=== PATIENT | female | born 1995 | race Caucasian/White ===

== ENCOUNTER 2020-03-08 08:39 | Emergency (ER) | payer OTHER ==
[2020-03-08 09:27] VITALS: BP 132/73
--- NOTE | 2020-03-08 09:45 | UC ---
Bite Injury/Animal HPI - HPI Summary HPI Summary: 24-year-old female comes in with a chief complaint of tick bite to the right leg. She noticed 2 days ago. She used tweezers to pull it out. She thinks are still a piece of it left in her. No rash no fevers no chills feels well otherwise. She is not sure how long the tick was in her. - History of Current Complaint Chief Complaint: UCBiteInjury Stated Complaint: TICK ON RT LEG Time Seen by Provider: 03/08/20 09:43 Pain Intensity: 0 - Allergies/Home Medications Allergies/Adverse Reactions: Allergies Allergy/AdvReac Type Severity Reaction Status Date / Time No Known Allergies Allergy Verified 03/08/20 09:27 Home Medications: Home Medications DOXYcycline CAP(*) [DOXYcycline 100MG CAP(*)] 200 mg PO ONCE #2 cap 03/08/20 [Rx ] PMH/Surg Hx/FS Hx/Imm Hx Previously Healthy: Yes - Surgical History Surgical History: None - Family History Known Family History: Positive: Non-Contributory - Social History Alcohol Use: None Substance Use Type: None Smoking Status (MU): Never Smoked Tobacco Review of Systems All Other Systems Reviewed And Are Negative: Yes Constitutional: Positive: Negative Skin: Positive: Other - SEE HPI Eyes: Positive: Negative ENT: Positive: Negative Respiratory: Positive: Negative Cardiovascular: Positive: Negative Motor: Positive: Negative Neurovascular: Positive: Negative Musculoskeletal: Positive: Negative Neurological/Mental Status: Positive: Negative Psychological: Positive: Negative Is Patient Immunocompromised?: No Physical Exam Triage Information Reviewed: Yes Appearance: Well-Appearing, No Pain Distress, Well-Nourished Vital Signs: Initial Vital Signs Temp 99.7 F 03/08/20 09:23 Pulse 82 03/08/20 09:23 Resp 17 03/08/20 09:23 BP 132/73 03/08/20 09:23 Pulse Ox 98 03/08/20 09:23 Vital Signs Reviewed: Yes Eye Exam: Normal Eyes: Positive: Conjunctiva Clear Neck: Positive: Supple Respiratory: Positive: No respiratory distress Musculoskeletal: Positive: Strength Intact, ROM Intact Neurological: Positive: Alert Psychological: Positive: Age Appropriate Behavior Skin: Positive: Other - On the right leg upper calf laterally there is a 1 mm dark areas surrounded by 2 mm of erythema. I was unable to remove the dark area with tick twisters. No bull's-eye rash no drainage. Bite Injury Course/Dx - Course Course Of Treatment: No obvious signs of Lyme disease at this time. We'll treat with 20 mg of doxycycline once. Patient is to get reevaluated if she develops bull's-eye rash rash or any symptoms of Lyme disease or any other concerns. - Differential Dx/Diagnosis Provider Diagnosis: Tick bite of right lower leg Discharge ED - Sign-Out/Discharge Documenting (check all that apply): Patient Departure All imaging exams completed and their final reports reviewed: No Studies - Discharge Plan Condition: Stable Disposition: HOME Prescriptions: DOXYcycline CAP(*) [DOXYcycline 100MG CAP(*)] 200 mg PO ONCE #2 cap Patient Education Materials: Tick Bite (ED) Referrals: Nancy Mcintosh MD [Primary Care Provider] - Additional Instructions: FOLLOW UP WITH YOUR DOCTOR IF NOT COMPLETELY IMPROVED. GET REEVALUATED IF NOT IMPROVING OR WORSE; RASH, BULL'S EYE RASH, SYMPTOMS OF LYME DISEASE OR ANY QUESTIONS OR CONCERNS. - Billing Disposition and Condition Condition: STABLE Disposition: Home
== END 2020-03-08 09:50 | disposition home or self-care (01) ==
LOC: UCCORT 08:39
DX: S80.861A Insect bite (nonvenomous), right lower leg, initial encounter (principal); W57.XXXA Bitten or stung by nonvenomous insect and other nonvenomous arthropods, initial encounter; Y92.9 Unspecified place or not applicable
CPT/HCPCS: 99202; G0463